=== PATIENT | male | born 1985 | race Caucasian/White ===

== ENCOUNTER 2018-10-04 01:19 | Emergency (ER) | payer OTHER ==
[~2018-10-04] VITALS: Wt 81.0 kg
[2018-10-04 01:23] VITALS: BP 126/65; PULSE 81; RESP 19
[2018-10-04] MEDS ORDERED: LIDOCAINE 1% (MPF) 5 ML VIAL INJ ONE (03:30)
[2018-10-04] MEDS ORDERED: IBUP-1542 PO (05:13)
--- NOTE | 2018-10-04 05:18 | ERD ---
ER Documentation Chief Complaint Chief Complaint bib self, cc: left cheek abscess for 3 days, given clinda, and sulfa HPI 33-year-old male patient with no significant past medical history presents the ED complaining of a left facial abscess that started 3 days ago. Patient taking clindamycin, Bactrim started yesterday. Patient reports that he went to the urgent care and has not received an incision and drainage. States that he has had previous abscesses before. Denies any IV drug use. Denies any jae fever, chills, nausea, vomiting, diarrhea, neck stiffness. ROS All systems reviewed and are negative except as per history of present illness. Medications Home Meds Active Scripts Ibuprofen* (Motrin*) 600 Mg Tab, 600 MG PO Q6, #30 TAB Prov:ARI STINSON PA-C 10/04/18 Allergies Allergies: Coded Allergies: No Known Allergy (Unverified , 10/04/18) PMhx/Soc Medical and Surgical Hx: pt denies Medical Hx, pt denies Surgical Hx Hx Alcohol Use: No Hx Substance Use: No Hx Tobacco Use: No Smoking Status: Never smoker FmHx Family History: No diabetes, No coronary disease Physical Exam Vitals Vital Signs Date Temp Pulse Resp B/P (MAP) Pulse Ox O2 O2 Flow FiO2 Time Delivery Rate 10/04/18 98.2 81 19 126/65 100 01:23 (85) Physical Exam Const: [place], well-nourished. In no acute distress. Head: Atraumatic, normocephalic Eyes: Normal Conjunctiva without injection ENT: Normal external ear, nose and mouth. Neck: Full range of motion. No meningismus. Resp: Clear to auscultation bilaterally. No wheezing, rhonchi, rales, or crackles. No accessory muscle use. No retractions. Cardio: Regular rate and rhythm, no murmurs Skin: No petechiae or rashes. 3 cm abscess noted of left cheek with slight erythema surrounding the area. Slight fluctuance and induration noted. Back: No midline tenderness. No CVA tenderness. Ext: No cyanosis, or edema. Cap refill less than 2 seconds. Distal pulses intact bilaterally. Neur: Awake and alert. Normal gait and coordination. Muscle strength 5/5. Sensation intact bilaterally. Psych: Normal Mood and Affect Results 24 hrs Current Medications Medications Dose Sig/Gracia Start Time Status Last (Trade) Ordered Route PRN Stop Time Admin Dose Reason Admin Lidocaine 5 ml ONCE ONCE 10/04/18 DC (Xylocaine INJ 03:30 10/04/18 1% (Mpf)) 03:31 Procedures/MDM 3-year-old male patient with no significant past medical history presents the ED complaining of left cheek abscess that started 3 days ago. Patient is afebrile and nontoxic-appearing. Patient gave consent to perform incision and drainage. 11 blade scalpel used to make a small incision. Abscess Incision and Drainage with irrigation by me: Location: Left cheek abscess Anesthesia: [3 cc Local 1% Lidocaine] Technique: [Irrigated. Disrupted loculations w/ instrumentation] Packing: [None] Complications: [Neurovascularly intact post procedure] Copious purulent discharge drained from the abscess. Patient has already been prescribed Clindamycin and Bactrim. Patient was strictly instructed to complete the course as patient is started on day 1. Low suspicion for deep space infection, periorbital fracture/cellulitis, or other emergent conditions. Diagnosis: Facial abscess Discharge medications: Ibuprofen. Continue the course of clindamycin and Bactrim. Follow up with primary care physician in 1-2 days. Instructed patient to return to the ED sooner for any worsening symptoms. Patient's questions were answered. Patient is hemodynamically stable. Patient understood and agreed with discharge plan. Patient discharged stable. Disclaimer: Inadvertent spelling and grammatical errors are likely due to EHR/dictation software use and do not reflect on the overall quality of patient care. Also, please note that the electronic time recorded on this note does not necessarily reflect the actual time of the patient encounter. Departure Diagnosis: Primary Impression: Facial abscess Condition: Stable Patient Instructions: Abscess, Incision And Drainage Referrals: COMMUNITY CLINICS YOU HAVE RECEIVED A MEDICAL SCREENING EXAM AND THE RESULTS INDICATE THAT YOU DO NOT HAVE A CONDITION THAT REQUIRES URGENT TREATMENT IN THE EMERGENCY DEPARTMENT. FURTHER EVALUATION AND TREATMENT OF YOUR CONDITION CAN WAIT UNTIL YOU ARE SEEN IN YOUR DOCTORS OFFICE WITHIN THE NEXT 1-2 DAYS. IT IS YOUR RESPONSIBILITY TO MAKE AN APPOINTMENT FOR FOLOW-UP CARE. IF YOU HAVE A PRIMARY DOCTOR --you should call your primary doctor and schedule an appointment IF YOU DO NOT HAVE A PRIMARY DOCTOR YOU CAN CALL OUR PHYSICIAN REFERRAL HOTLINE AT IF YOU CAN NOT AFFORD TO SEE A PHYSICIAN YOU CAN CHOSE FROM THE FOLLOWING [facility] [address] [facility] [address] [facility] [address] [facility] [address] [facility] [address] [facility] [facility]. [facility]. [address] [facility]. [facility] YOU HAVE RECEIVED A MEDICAL SCREENING EXAM AND THE RESULTS INDICATE THAT YOU DO NOT HAVE A CONDITION THAT REQUIRES URGENT TREATMENT IN THE EMERGENCY DEPARTMENT. FURTHER EVALUATION AND TREATMENT OF YOUR CONDITION CAN WAIT UNTIL YOU ARE SEEN IN YOUR DOCTORS OFFICE WITHIN THE NEXT 1-2 DAYS. IT IS YOUR RESPONSIBILITY TO MAKE AN APPOINTMENT FOR FOLOW-UP CARE. IF YOU HAVE A PRIMARY DOCTOR --you should call your primary doctor and schedule and appointment IF YOU DO NOT HAVE A PRIMARY DOCTOR YOU CAN CALL OUR PHYSICIAN REFERRAL HOTLINE AT . IF YOU CAN NOT AFFORD TO SEE A PHYSICIAN YOU CAN CHOSE FROM THE FOLLOWING [facility] INSTITUTIONS: [facility] [address] [place] [address] [facility] [address] [place] [address] [facility] [address] [place] [address] Additional Instructions: Please complete the course of antibiotics prescribed to you by urgent care. Call your primary care doctor TOMORROW for an appointment during the next 2-3 days.See the doctor sooner or return here if your condition worsens before your appointment time. Follow up in 2 days in your clinic for wound check. ARI STINSON PA-C Oct 04, 2018 05:18
== END 2018-10-04 05:25 | disposition home or self-care (01) ==
LOC: FTE 01:19
DX: L02.01 Cutaneous abscess of face (principal)
CPT/HCPCS: 10060; Z7502; Z7610

== ENCOUNTER 2018-10-06 10:13 | Emergency (ER) | payer OTHER ==
[~2018-10-06] VITALS: Ht 167.6 cm; Wt 79.0 kg
[~2018-10-06 10:13] MED LIST: IBUP-1542 PO
[2018-10-06 10:17] VITALS: BP 120/69; PULSE 67; RESP 20; Ht 167.6 cm; Wt 79.0 kg
--- NOTE | 2018-10-06 11:58 | ERD ---
ER Documentation Chief Complaint Chief Complaint Patient here for a wound check HPI 33-year male presents for wound check. He had an I&D 2-3 days ago for a left face abscess. He was given antibiotics for which he has 2 days left. He has a total of 10 days of antibiotics. He states that the area appears to be healing well. He denies any fevers or chills. ROS All systems reviewed and are negative except as per history of present illness. Medications Home Meds Active Scripts Ibuprofen* (Motrin*) 600 Mg Tab, 600 MG PO Q6, #30 TAB Prov:ARI STINSON PA-C 10/04/18 Allergies Allergies: Coded Allergies: No Known Allergy (Unverified , 10/04/18) PMhx/Soc Hx Alcohol Use: No Hx Substance Use: No Hx Tobacco Use: No Physical Exam Vitals Vital Signs Date Temp Pulse Resp B/P (MAP) Pulse Ox O2 O2 Flow FiO2 Time Delivery Rate 10/06/18 98.0 67 20 120/69 98 10:17 (86) Physical Exam Const: No acute distress Resp: Clear to auscultation bilaterally Cardio: Regular rate and rhythm, no murmurs Skin: Left face abscess status post I&D, wound area appears to be healing well. There is no increased warmth, no signs of infection. Neur: Awake and alert, sensation intact in all areas of the face. Psych: Normal Mood and Affect Procedures/MDM Medical Decision Making: Patient appeared well on physical examination. Left face abscess status post I&D 2 days ago. Area seems to be healing well, no signs of infection. Patient advised to complete his course of antibiotic for which he has 2 days left. Patient advised to follow up with PCP in 1-2 days. Patient advised to return to ED for new or worsening symptoms. Patient stable on discharge from the ED. Disclaimer: Inadvertent spelling and grammatical errors are likely due to EHR/dictation software use and do not reflect on the overall quality of patient care. Also, please note that the electronic time recorded on this note does not necessarily reflect the actual time of the patient encounter. Departure Diagnosis: Primary Impression: Encounter for wound re-check Condition: Fair Patient Instructions: Wound Care Referrals: COMMUNITY CLINICS YOU HAVE RECEIVED A MEDICAL SCREENING EXAM AND THE RESULTS INDICATE THAT YOU DO NOT HAVE A CONDITION THAT REQUIRES URGENT TREATMENT IN THE EMERGENCY DEPARTMENT. FURTHER EVALUATION AND TREATMENT OF YOUR CONDITION CAN WAIT UNTIL YOU ARE SEEN IN YOUR DOCTORS OFFICE WITHIN THE NEXT 1-2 DAYS. IT IS YOUR RESPONSIBILITY TO MAKE AN APPOINTMENT FOR FOLOW-UP CARE. IF YOU HAVE A PRIMARY DOCTOR --you should call your primary doctor and schedule an appointment IF YOU DO NOT HAVE A PRIMARY DOCTOR YOU CAN CALL OUR PHYSICIAN REFERRAL HOTLINE AT IF YOU CAN NOT AFFORD TO SEE A PHYSICIAN YOU CAN CHOSE FROM THE FOLLOWING [facility]ICS [facility] [address] [facility] [address] [facility] [facility] [address] [facility] [address] [facility] [address] [facility]. [facility]. [address] Additional Instructions: Call your primary care doctor TOMORROW for an appointment during the next 1-2 days.See the doctor sooner or return here if your condition worsens before your appointment time. MILAGROS HARRELL DO Oct 06, 2018 11:58
== END 2018-10-06 12:05 | disposition home or self-care (01) ==
LOC: FTE 10:13
DX: Z48.01 Encounter for change or removal of surgical wound dressing (principal)
CPT/HCPCS: 99281